=== PATIENT | female | born 1970 | race African-American/Black ===

== ENCOUNTER 2019-02-13 06:34 | Observation (INO) | payer MEDICARE, OTHER ==
[2019-02-13] MEDS ORDERED: LEVALBUTEROL NEB 1.25 MG/3 ML VIAL.NEB NEB ONE ×2 (07:53→08:48)
[2019-02-13] MEDS ORDERED: SEVOFLURANE 250 ML LIQUID IH ONE (08:48)
[2019-02-13] MEDS ORDERED: ROCURONIUM BROMIDE 10 MG/ML 5ML VIAL ONE (08:48)
[2019-02-13] MEDS ORDERED: SUGAMMADEX SODIUM 200 MG/2 ML VIAL IV ONE (08:48)
[2019-02-13] MEDS ORDERED: THROMBIN (BOVINE) 20,000 UNIT VIAL TP ONE (08:48)
[2019-02-13] MEDS ORDERED: PHENYLEPHRINE HCL 10 MG/1 ML ONE (08:48)
[2019-02-13] MEDS ORDERED: MIDAZOLAM HCL 2 MG/2 ML VIAL ONE (08:48)
[2019-02-13] MEDS ORDERED: LACTATED RINGERS 1,000 ML IV.SOLN IV ONE ×2 (08:48)
[2019-02-13] MEDS ORDERED: NORMAL SALINE 1,000 ML IV.SOLN IV ONE (08:48)
[2019-02-13] MEDS ORDERED: HYDROmorphone HCL/PF 2 MG/ML VIAL ONE (08:48)
[2019-02-13] MEDS ORDERED: LIDOCAINE HCL 2% PF 100MG/5ML VIAL IJ ONE (08:48)
[2019-02-13] MEDS ORDERED: fentaNYL CITRATE/PF 100 MCG/2 ML INJ. ONE ×3 (08:48→12:52)
[2019-02-13] MEDS ORDERED: ceFAZolin SODIUM 1 GM VIAL ONE (08:48)
[2019-02-13] MEDS ORDERED: ONDANSETRON HCL/PF 4 MG/ 2ML VIAL ONE (08:48)
[2019-02-13] MEDS ORDERED: DEXAMETHASONE SODIUM PHOSPHATE 10 MG/ML VIAL ONE (08:48)
[2019-02-13] MEDS ORDERED: BACITRACIN 50,000 UNIT VIAL IR ONE (08:48)
[2019-02-13] MEDS ORDERED: PROPOFOL 200 MG/20 ML VIAL IV ONE (08:48)
[2019-02-13] MEDS ORDERED: GELATIN SPONGE,ABSORB/PORCINE (SIZE 100) 1 EACH SPONGE TP ONE (08:48)
[2019-02-13] MEDS ORDERED: LABETALOL HCL 20 MG/4 ML SYRINGE IV ONE ×2 (08:48→13:12)
[2019-02-13] MEDS ORDERED: LORazepam 2 MG/ML VIAL ONE ×2 (08:48→12:30)
[2019-02-13 14:03] VITALS: BMI 64.3
[2019-02-13] MEDS ORDERED: BISACODYL 10 MG SUPP.RECT RC PRN (14:06)
[2019-02-13] MEDS ORDERED: ONDANSETRON HCL/PF 4 MG/ 2ML VIAL IVP PRN (14:06)
[2019-02-13] MEDS ORDERED: KETOROLAC TROMETHAMINE 30 MG/1ML VIAL IV PRN (14:06)
[2019-02-13] MEDS ORDERED: PROMETHAZINE HCL 25 MG TABLET PO PRN (14:13)
--- NOTE | 2019-02-13 14:13 | History and Physical Report ---
History of Present Illnes - History of Present Illness Reason for Visit: chronic neck pain History of Present Illness: 48yo female with a 4 1/2 year history or neck pain. Underwent - Past Medical History Cardiac: HTN POLICY OFFICER: Other (Sleep apnea) Gastrointestinal: Other (s/p gastric sleeve) Hepatobiliary: Other (hepatitis) Psych: Anxiety, Depression - Past Surgical History Past Surgical History: Tubal Ligation, Other (5-6, C6-7 disc replaceemnt; lsminectomy foramenotomy) - Past Family History Mother Family History: None ( and decompression, espophageal hematoma) Father Family History: None (good health) - Past Social History Smoke: <1 pack per day (1/2 ppd) Occupation: disabled Alcohol: None Drugs: None Lives: With Family Domestic Violence: Negative - Health Maintenance Health Maintenance: denies: Cholesterol, Influenza Vaccine, Pneumococcal Vaccine Pneumonia Vaccine: No Resuscitation Status: Resusciation Status Resuscitation Status Full Code - Unable to Obtain History Unable to Obtain: No Review of Systems - Review of Systems Constitutional: negative: Fever, Chills Eyes: other (glasses) ENT: negative: Ear Pain, Ear Discharge, Nose Pain, Nose Discharge, Nose Congestion, Mouth Pain, Throat Pain Respiratory: negative: Cough, Dry, Hemoptysis, SOB with Excertion, Deferred Cardiovascular: Chest Pain (esophageal) Gastrointestinal: negative: Nausea, Vomiting, Abdominal Pain, Diarrhea, Constipation, Melena, Hematochezia Genitourinary: negative: Dysuria, Frequency, Incontinence Musculoskeletal: Neck Pain, Shoulder Pain. negative: Arm Pain, Back Pain, Hand Pain, Leg Pain, Foot Pain Skin: negative: Rash, Lesions, Jaundice Neurological: negative: Weakness, Numbness, Incoordination, Change in Speech - Medications/Allergies Allergies/Adverse Reactions: Allergies Allergy/AdvReac Type Severity Reaction Status Date / Time No Known Drug Allergies Allergy Verified 02/13/19 14:29 Home Medications: Home Medications Aspirin [Adult Low Dose Aspirin EC] 81 mg PO DAILY 02/13/19 Escitalopram Oxalate [Lexapro] 20 mg PO DAILY 02/13/19 Hydroxyzine HCl 50 mg PO QID 02/13/19 Lisinopril/Hydrochlorothiazide [Zestoretic] 1 each PO DAILY 02/13/19 Loratadine [Claritin] 10 mg PO DAILY 02/13/19 Lurasidone HCl [Latuda] 80 mg PO DAILY 02/13/19 Multivitamin [Tab-A-Lynette] 1 tab PO DAILY 02/13/19 Omeprazole (Nf) [Prilosec (Nf)] 20 mg PO [id number] 02/13/19 Promethazine HCl [Phenergan] 25 mg PO PRN PRN 02/13/19 Ranitidine HCl [Heartburn Relief] 150 mg PO BID 02/13/19 Tizanidine HCl 4 mg PO BID 02/13/19 Vortioxetine Hydrobromide [Trintellix] 20 mg PO DAILY 02/13/19 Zolpidem Tartrate 10 mg PO DAILY 02/13/19 buPROPion [Wellbutrin Sr (12 Hour)] 1 tab PO BID 02/13/19 Current Inpatient Medications: Current Inpatient Medications Bisacodyl (Dulcolax) 10 mg RC DAILY PRN PRN Reason: Constipation Fentanyl Citrate (Sublimaze) 100 mcg IVP Q2H PRN PRN Reason: For Severe Pain 8-10 Stop: 02/14/19 14:05 Ketorolac Tromethamine (Toradol) 30 mg IV Q6H PRN PRN Reason: For Mild Pain 1-4 Stop: 02/17/19 14:05 Ondansetron HCl (Zofran) 4 mg IVP Q6H PRN PRN Reason: Nausea / Vomiting Stop: 02/17/19 14:05 Oxycodone/Acetaminophen (Percocet 5-325) 2 each PO Q4 PRN PRN Reason: Moderate pain 5-7 Exam - Exam Vital Signs: Vital Signs (72 hours) 02/13/19 02/13/19 13:53 14:01 Temperature 97.4 F L 97.4 F L Pulse Rate [ 81 81 Right] Respiratory 18 18 Rate Blood Pressure 120/58 120/58 [Right Arm] O2 Sat by Pulse 95 95 Oximetry General: Alert, Oriented to Person, Oriented to Place, Oriented to Time, Cooperative, Moderate distress HEENT: Atraumatic, PERRLA, EOMI, Mouth Mucous membr. moist/[place], Nose Mucous membr. moist/[place] Neck: Normal Range of Motion Carotids: WNL Thyroid: WNL Lungs: Clear to auscultation, Normal air movement, Speaks full Sentences. No: Wheezes, Rales, Rhonchi Cardiovascular: Regular rate, Normal S1, Normal S2, No murmurs Abdomen: Soft, No tenderness, No hepatospenomegaly, No masses, Decreased Bowel Sounds Integumentary: Normal, [place], Warm, Dry, Other (dressing tot he left lateral neck area intact and normal) Extremities: No clubbing, No cyanosis, No edema, Normal pulses, No tenderness/swelling Neurological: Normal gait, Normal speech, Strength Equal Bilat, Normal tone, Sensation intact, Cranial nerves 3-12 NL, Reflexes 2+ Psych/Mental Status: Mental status NL, Mood NL, Appropriate Affect, Intact Judgment Assessment/Plan - Assessment/Plan (1) S/P orthopedic surgery, follow-up exam Status: Acute Current Visit: Yes Assessment: Will start PT and OT. Encourage patient to be up and walking. Will watch for flatus and BM. Pain meds ordered. (2) Essential hypertension Status: Acute Current Visit: Yes Assessment: Continue with home meds (3) Anxiety and depression Status: Acute Current Visit: Yes Assessment: continue with home meds (4) GERD (gastroesophageal reflux disease) Status: Acute Current Visit: Yes Assessment: continue with home meds VTE Assessment - RISK FACTOR SCORE VTE RISK FACTOR SCORES: AGE 40-60 YEARS, MINOR SURGERY/ ANESTHESIA TIME < 1 HOUR - RISK VTE MODERATE RISK: SCORE OF 2 (RISK PROXIMAL DVT 2-4%) PROPHYAXIS NEEDED
[2019-02-13] MEDS ORDERED: TIZANIDINE HCL 4 MG TABLET PO PRN (14:16)
[2019-02-13] MEDS ORDERED: PROMETHAZINE HCL 25 MG in 0.9 % SODIUM CHLORIDE 50 ML IV PRN (14:37)
[2019-02-13] MEDS: fentaNYL CITRATE/PF 100 MCG/2 ML INJ. IVP PRN ×2 (14:52→19:40)
[2019-02-13] MEDS ORDERED: hydroCHLOROthiazide 25 MG TABLET PO ONE (19:25)
[2019-02-13] MEDS ORDERED: LISINOPRIL 10 MG TABLET PO ONE (19:26)
[2019-02-13] MEDS ORDERED: ZOLPIDEM TARTRATE 5 MG TABLET PO SCH (21:00)
[2019-02-13] MEDS: HEPARIN SODIUM 5000 UNIT/1 ML SQ SCH (22:12)
[2019-02-13] MEDS: buPROPion 150 MG TAB.ER.12H PO SCH (22:14)
[2019-02-14] MEDS: fentaNYL CITRATE/PF 100 MCG/2 ML INJ. IVP PRN (00:10)
[2019-02-14] MEDS: oxyCODONE/ACETAMINOPHEN 5/325 TABLET PO PRN ×2 (04:35→08:35)
[2019-02-14] MEDS ORDERED: PANTOPRAZOLE SODIUM 40 MG TABLET.DR PO SCH (07:00)
[2019-02-14] MEDS: buPROPion 150 MG TAB.ER.12H PO SCH (08:36)
[2019-02-14] MEDS: HEPARIN SODIUM 5000 UNIT/1 ML SQ SCH (08:38)
[2019-02-14 08:41] VITALS: BP 119/67
[2019-02-14] MEDS ORDERED: MULTIVITAMIN 1 EACH TABLET PO SCH (09:00)
[2019-02-14] MEDS ORDERED: LORATADINE 10 MG TABLET PO SCH (09:00)
[2019-02-14] MEDS ORDERED: FAMOTIDINE 20 MG TABLET PO SCH (09:00)
[2019-02-14] MEDS ORDERED: PATIENT OWN MED 1 EACH EACH PO SCH (09:00)
[2019-02-14] MEDS ORDERED: LISINOPRIL 10 MG TABLET PO SCH (09:00)
[2019-02-14] MEDS ORDERED: hydroCHLOROthiazide 25 MG TABLET PO SCH (09:00)
[2019-02-14] MEDS ORDERED: ESCITALOPRAM OXALATE 10 MG TABLET PO SCH (09:00)
[2019-02-14] MEDS ORDERED: LURASIDONE HCL (NF) 40 MG TABLET PO SCH (09:00)
[2019-02-14] MEDS ORDERED: KETOROLAC TROMETHAMINE 60 MG/2 ML VIAL IM PRN (11:18)
[2019-02-14] MEDS ORDERED: HYDROmorphone HCL/PF 1 MG/ML VIAL IVP PRN (11:20)
--- NOTE | 2019-02-14 11:26 | Inpatient Progress Note ---
Subjective - Required Recertification Statement I anticipate X number of days because-include discharge plan: 1 day - Review of Systems Events since last encounter: Patient has been ambulating well. Has been using incentive spirometry several times every hour. Has passed some flatus, no BM as of this time. Appetite has been good. States that the Fentanyl and other pain meds do not seem to be taking care of her pain well. Does not seem to be having a lot of pain with ambulation at this time. No numbness or weakness to the lower extremities at this time. Objective - Exam Vitals and I&O: Vital Signs Temp 98.2 F 02/14/19 08:39 Pulse 84 02/14/19 08:39 Resp 18 02/14/19 08:39 BP 119/67 02/14/19 08:39 Pulse Ox 93 02/14/19 09:48 Intake & Output 02/13/19 02/13/19 02/14/19 11:59 23:59 11:59 Intake Total 10 360 Output Total 600 300 Balance -590 60 Weight 170 kg Intake: IV 10 0 Left AC 10 0 Oral 0 360 Output: Urine 600 300 Other: Voiding Method Toilet Toilet # Voids 0 2 # Bowel Movements 0 General: Alert, Oriented to Person, Oriented to Place, Oriented to Time, Cooperative Neck: Supple, No JVD, No thyromegaly Lungs: Clear to auscultation, Normal air movement, Speaks full Sentences Cardiovascular: Regular rate, Normal S1, Normal S2, No murmurs Abdomen: Normal bowel sounds, Soft, No hepatospenomegaly, No masses, Other (mild diffuse tenderness). No: Distended Skin: Normal, [place], Warm, Dry, Other (insiion clean and dry. Patient did have some blleding from the incision yesterday. ) Neurological: Normal tone, Sensation intact, Reflexes 2+ Psych/Mental Status: Mental status NL, Mood NL, Appropriate Affect, Intact Judgment Assessment/Plan - Assessment/Plan (1) S/P orthopedic surgery, follow-up exam Status: Acute Current Visit: Yes Assessment: improved. Will switch pain meds to se if we can help her out a little better. (2) Essential hypertension Status: Acute Current Visit: Yes Assessment: stable (3) Anxiety and depression Status: Acute Current Visit: Yes Assessment: stable. Advised patient that with the increase dose of opiates I did not feel comfortable in giving her her usual dose of Valium. She has been continued on her usual dose of clonazepam (4) GERD (gastroesophageal reflux disease) Status: Acute Current Visit: Yes Assessment: stable
--- NOTE | 2019-02-15 16:30 | Operative Note ---
PREOPERATIVE DIAGNOSIS: 1. Herniated nucleus pulposus, C5-6. 2. Herniated nucleus pulposus, C6-7. 3. Central and bilateral foraminal stenosis from herniated nucleus pulposus and osteophyte formation. POSTOPERATIVE DIAGNOSIS: 1. Herniated nucleus pulposus, C5-6. 2. Herniated nucleus pulposus, C6-7. 3. Central and bilateral foraminal stenosis from herniated nucleus pulposus and osteophyte formation. PROCEDURES PERFORMED: 1. Excision of herniated nucleus pulposus, C5-6. 2. Excision of herniated nucleus pulposus, C6-7. 3. Partial vertebrectomy for decompression of central and bilateral foraminal stenosis, posterior inferior aspect of the C5 vertebral body. 4. Partial vertebrectomy for decompression of central and bilateral foraminal stenosis, posterior superior aspect of the C6 vertebral body. 5. Partial vertebrectomy for decompression of central and bilateral foraminal stenosis, posterior inferior aspect of the C6 vertebral body. 6. Partial vertebrectomy for decompression of central and bilateral foraminal stenosis, posterior superior aspect of the C7 vertebral body. 7. Insertion of cervical total disc replacement arthroplasty at the C5-6 level. 8. Insertion of cervical total disc replacement arthroplasty at the C6-7 level. 9. Intraoperative fluoroscopy and interpretation for needle placement. SURGEON: Minh Guajardo Jr., M.D. E LEARNING SPECIALIST: ISAAK Raphael BC ANESTHESIA: General. COMPLICATIONS: None. CONDITION FOLLOWING THE PROCEDURE: Good. OPERATIVE FINDINGS: This patient is unremittingly symptomatic and has failed prolonged conservative treatment for identified herniated nucleus pulposus and degenerative disc changes with osteophyte complexes causing central and bilateral foraminal stenosis at C5-6 and C6-7. The patient was counseled regarding options and would like to proceed with surgical care with total disc replacement arthroplasties in mind, in lieu of fusion. This was carried out today without complications. The patient tolerated the procedure well and in the recovery room, gross motor and sensory examination was deemed to be normal. DESCRIPTION OF PROCEDURE: The patient was taken to the operating room and intravenous antibiotics administered. The neck was shaved to the degree necessary. Steri-Drapes were applied at the intended surgical site edges. The surgical site was then scrubbed and prepped to sterility. Sterile draping then occurred. X-ray was brought into position and a radiographic marker was placed identifying the extended center line of the disc for intended surgical care. Beginning at the midline, a transverse surgical incision was made extending to the left approximately 2 cm. Once the epidermis was penetrated, the dermis was incised with electrocautery. Dissection through the subcutaneous tissue with Metzenbaum scissors and digitally was performed down until the interval between the trachea and the carotid triangle and the esophagus was clearly established down to the Longus colli muscles on the left side of the anterior cervical spine at the C6-7 level. Gentle retraction of the trachea and esophagus occurred to the right side while Kitner retractors were used to bluntly open the prevertebral fascia and reveal the annulus. Into the annulus was placed a safety needle and all retractors were removed and x-rays taken to confirm midline placement of the needle, and that the correct anatomic level was still identified. Electrocautery was then used to elevate the Longus colli muscles after [employer] Retractor blades were replaced. The needle had been removed. The Test Man tined retractor blades of the appropriate length were then inserted under the Longus colli muscles and retracted to reveal the anterior disc space sufficiently from left to right. The annulus was then incised with a #15 blade scalpel and removed. Pituitary rongeurs were then used to begin to evacuate the disc material. [place] pins were then inserted into the midportion of the vertebral body anteriorly above and below the affected disc. [place] retractor was then placed and distraction began. This allowed larger pituitary rongeurs to be inserted and all disc material was removed back to the impinging posterior osteophytes. A curette was then used and the endplates were curettaged until all cartilaginous material was removed, exposing bleeding bone. A smaller curette was then used to penetrate the posterior osteophyte all the way down to the removal of a portion of the posterior longitudinal ligament revealing the dura. Once the dura was visualized, a combination of 1- and 2-mm Kerrison rongeurs were inserted beneath the posterior longitudinal ligament and resection began of the posterior longitudinal ligament and associated osteophytes and bone spurs emanating posteriorly causing the posterior and lateral recess stenosis. Once the osteophytes had been resected to sufficiency as documented radiographically and laterally as documented by using a nerve hook to prove complete decompression, Gelfoam was used as necessary to control hemostasis. The appropriate implant sizing tools were then used to establish the appropriate width, depth, and height for implant placement. Any osteophytes anteriorly necessary to remove were then also removed with a Kerrison rongeur to allow access and placement of the implant. The cervical total disc replacement implant of the appropriate size was then affixed to the carrier and impacted into the midline position as determined radiographically. The lateral C-arm fluoroscopy visualization was then used to drive the implant to the desired depth as determined radiographically. The device for removing the implant insertion tool was used and the implant insertion tool was removed. The implant carrier was then grasped in the appropriate tool, loosened and removed, leaving the implant in place. For the purpose of this portion of the process, the [place] retractor was placed into a compression mode to securely hold on to the implant while the insertion tools were removed. Following this, irrigation was carried out. The retractor was then removed and the wound examined for hemostasis, which was confirmed to be present. The [place] pins had been removed and bone wax placed in the vertebral body holes left by the [place] pin insertion to achieve hemostasis. A 3-0 Vicryl suture approximated the subcutaneous tissue. A 5-0 Vicryl then approximated the subcuticular tissue. Dermabond then approximated the epidermis. A sterile dressing was applied and the patient was taken to the recovery room in good condition where normal motor and sensory examination was confirmed to be present. After completing the procedure at the C6-7 level initially, the retractors were withdrawn and replaced at the C5-6 level in order to allow access. The identical procedure as described was then carried out at the C5-6 level, terminating with irrigation and closure of the wound and application of a dressing and cervical collar. The patient was then taken to the recovery room where good motor and sensory examination was confirmed to be present. MINH GUAJARDO JR., M.D. ASHLYN/israel (Please copy [facility] provider when applicable) Job #[id number] ARUNA
--- NOTE | 2019-02-24 13:35 | Discharge Summary ---
Discharge Summary - Discharge [place] Admission Date: 02/13/19 (Acute) Discharge Date: 02/14/19 (home) Discharge To: Home History of Present Illness: Patient is a 48-year-old female with in approximately four to have year history of neck pain. Patient denies any precipitating factor that she is aware. Patient has been treated conservatively with physical therapy, pain medication, and steroid injections. Patient states that she is not had much relief with those modalities. Patient did have an MRI scan done which showed cervical disc disease. Patient was subsequently seen and felt that she would benefit from a total disc replacement. Patient did undergo a C5/6 and C6/7 total cervical disc replacement. Patient did not have any intraoperative complications. Patient was admitted to the hospital for postoperative care. Home Medications: Ambulatory Orders Medication Instructions Recorded Aspirin [Adult Low Dose Aspirin EC] 81 mg PO DAILY 02/13/19 Escitalopram Oxalate [Lexapro] 20 mg PO DAILY 02/13/19 Hydroxyzine HCl 50 mg PO QID 02/13/19 Lisinopril/Hydrochlorothiazide 1 each PO DAILY 02/13/19 [Zestoretic] Loratadine [Claritin] 10 mg PO DAILY 02/13/19 Lurasidone HCl [Latuda] 80 mg PO DAILY 02/13/19 Multivitamin [Tab-A-Lynette] 1 tab PO DAILY 02/13/19 Omeprazole (Nf) [Prilosec (Nf)] 20 mg PO [id number] 02/13/19 Promethazine HCl [Phenergan] 25 mg PO PRN PRN 02/13/19 Ranitidine HCl [Heartburn Relief] 150 mg PO BID 02/13/19 Tizanidine HCl 4 mg PO BID 02/13/19 Vortioxetine Hydrobromide 20 mg PO DAILY 02/13/19 [Trintellix] Zolpidem Tartrate 10 mg PO DAILY 02/13/19 buPROPion [Wellbutrin Sr (12 Hour)] 1 tab PO BID 02/13/19 Hydrocodone/Acetaminophen 1 each PO Q3 PRN #56 tablet 02/14/19 [Hydrocodon-Acetaminoph 7.5-325] Consultations this Visit: None Procedures this Visit: Other (C5/6 & C6/7 total cervical disc replacement) Allergies/Adverse Reactions: Allergies Allergy/AdvReac Type Severity Reaction Status Date / Time No Known Drug Allergies Allergy Verified 02/13/19 14:29 Discharge Summary: Patient did well postoperatively. Patient did have normal postoperative pain which was controlled with order to pain medications. Patient vital signs remain stable. Patient blood pressure did increase some postoperatively that the time to discharge with back to normal. Patient did not have any numbness or weakness in her upper extremities. Patient did not have any bowel or bladder incontinent issues. Patient other chronic medical problems remain stable during her hospitalization. At the time to discharge was felt that the patient was stable enough that she could be discharged home and followed on an outpatient basis. - Final Diagnosis (1) S/P orthopedic surgery, follow-up exam Problems: stable (2) Essential hypertension Problems: Stable on home medications. (3) Anxiety and depression Problems: Stable on home medications. (4) GERD (gastroesophageal reflux disease) Problems: Stable on home medications.
== END 2019-02-14 11:35 | disposition home or self-care (01) ==
LOC: OPSURG 06:34 → SOUTH 06:35 → UNDOADMOB 13:35 → UNDODISOB 02-14 11:35
PROVIDERS: ADMIT Family Medicine; ATTEND Family Medicine
DX: M50.223 Other cervical disc displacement at C6-C7 level (principal); M48.02 Spinal stenosis, cervical region; M25.78 Osteophyte, vertebrae; I10 Essential (primary) hypertension; Z47.89 Encounter for other orthopedic aftercare; F41.8 Other specified anxiety disorders; K21.9 Gastro-esophageal reflux disease without esophagitis
CPT/HCPCS: 22856; 22858; 97116; 99218; A9270; G0378; J0690; J1170; J1644; J1885; J2001; J2060; J2250; J2370; J2405; J2704; J3010; J3490; J7030; J7120; J7614